=== PATIENT | male | born 1985 | race American Indian/Alaskan Native ===

== ENCOUNTER 2022-05-18 20:33 | Emergency (ER) | payer MEDICARE ==
--- NOTE | 2022-05-18 20:54 | Emergency Department Report ---
<KAYLA WILLIAM - Last Filed: 05/18/22 20:47> ED CPR HPI - General Stated Complaint: CARDIAC ARREST Time Seen by Provider: 05/18/22 20:42 - History of Present Illness Initial Comments: Pt is a 37 yo M brought in by EMS with witness cardiopulmonary arrest with effective CPR in progress. According to EMS patient has history of atrial fibrillation and hypertension. Pt has had 4 rounds of epi en route and with breathing and noted to be in ventricular tachycardia and was cardioverted 4 times with no change in rhythm. On presentation to the ED patient was noticed to be in PEA on the initial rhythm check in the ER. Pt was given another round of epi with noted PEA. Pt was also have been given an amp of BiCarb by the EMS en route as well. By this time patient has been having effective CPR for the last 39 minutes with no spontaneous cardiac activity noted. Patient was given second round of epi x1 in the emergency room and was noted to still be in PEA by then he has had effective CPR since 20:00 PM - 20:39 PM with no ROSC. His pupil was noted to be fully dilated and fixed with no chance of any meaningful neurological outcome. At this point at 20:39 PM CPR discontinued and patient pronounced . Differential diagnosis could be but not limited to myocardial infarction, pulmonary embolism, or cerebrovascular accident. ED Review of Systems Comment: Unobtainable due to pts medical conditions ED Physical Exam - General Limitations: Other (unresponsive with cardiac arrest with CPR in progress) - Eye Pupils: Present: other (pupil dilateral and fixed) ED Medical Decision Making - Medical Decision Making Pt is a 37 yo M brought in by EMS with witness cardiopulmonary arrest in a patient with history of a-fib and hypertension with effective CPR in progress. Pt has had 4 rounds of epi en route and notice to be in ventricular tachycardia and have been cardioverted 4 times with no change in rhythm. On presentation to the ED patient was noticed to be in PEA on the initial rhythm check in the ER. Pt was given another round of epi with noted PEA. Pt was also have been given an amp of BiCarb by the EMS en route as well. By this time patient has been having effective CPR for the last 39 minutes with no spontaneous cardiac activity noted. Patient was given second round of epi x1 in the emergency room and was noted to still be in PEA by then he has had effective CPR since 20:00 PM - 20:39 PM with no ROSC. His pupil was noted to be fully dilated and fixed with no chance of any meaningful neurological outcome. At this point at 20:39 PM CPR discontinued and patient pronounced . Differential diagnosis could be but not limited to myocardial infarction, pulmonary embolism, or cerebrovascular accident. ED Disposition Clinical Impression: Cardiopulmonary arrest, Cardiac arrest Disposition: 20 Is pt being admited?: No Does the pt Need Aspirin: No Condition: Critical <AVIVA CHAVEZ - Last Filed: 05/18/22 21:46> ED Review of Systems ROS: Stated complaint: CARDIAC ARREST Other details as noted in HPI ED Medical Decision Making - Medical Decision Making Patient's and 2 friends came to the ED. was informed of her 's . She provided her name, number, and verified her address and states she is in too much distress to provide further information at this time and states hospitals give her anxiety. She states she can be contacted by phone tomorrow for further arrangements Critical care attestation.: If time is entered above; I have spent that time in minutes in the direct care of this critically ill patient, excluding procedure time. ED Disposition Is pt being admited?: No
== END 2022-05-19 15:04 ==
LOC: ED 20:33
DX: I46.9 Cardiac arrest, cause unspecified (principal)
CPT/HCPCS: 92950; 99285